=== PATIENT | female | born 1990 | race Caucasian/White ===

== ENCOUNTER 2017-09-30 10:20 | Outpatient (CLI) | payer SELFPAY ==
--- NOTE | 2017-09-30 13:15 | ULT ---
ULTRASOUND PELVIS TRANSVAGINAL DOPPLER: Date: 09/30/17 HISTORY: N94.6, dysmenorrhea. COMPARISON: None. FINDINGS: Real-time Rhodes scale and color Doppler evaluation of the pelvis performed via transabdominal and nagel svaginal approach. Uterus measures 7.0 x 3.5 x 4.1 cm with an endometrial thickness of 5.0 mm. Right ovary measures 3.5 x 1.4 x 2.9 cm. Left ovary measures 2.2 x 2.0 x 2.0 cm. There is adequate vascular flow to both ovaries. Right ovary has a 1.9 x 1.0 x 2.3 cm cyst. No signif icant free fluid. IMPRESSION: Normal examination. POS: [facility]
== END 2017-09-30 10:21 | disposition home or self-care (01) ==
LOC: ULT 10:20
PROVIDERS: ATTEND Nurse Practitioner
DX: N94.6 Dysmenorrhea, unspecified (principal)
CPT/HCPCS: 76856